=== PATIENT | female | born 1975 | race Caucasian/White ===

== ENCOUNTER 2018-03-04 07:42 | Emergency (ER) | payer SELFPAY ==
[2018-03-04 07:47] VITALS: RESP 18
[2018-03-04] MEDS ORDERED: KETOROLAC 60 MG/2 ML VIAL IM STA (08:40)
--- NOTE | 2018-03-04 08:51 | ED ---
General Adult HPI - General Chief complaint: Extremity Injury, Lower Stated complaint: Foot Numbness Time Seen by Provider: 03/04/18 08:30 Source: patient, RN notes reviewed, old records reviewed Mode of arrival: wheelchair Limitations: no limitations - History of Present Illness Initial comments: 42-year-old female presented to the emergency room today with a chief complaint of sciatic pain going down left leg. She doesn't that she's had this for several months. Was seen in the emergency room recently given a Toradol shot which she states to give her some relief. She was using ibuprofen along with Flexeril at home with some relief the symptoms. She states she is out of his medications. Patient states she currently does not have a family physician has not followed up. Patient states pain is the same pain is radiating down the left leg. She admits to a numbness to groin sensation. She states goes all the way down to the toes. Denies any bowel or bladder incontinence or retention. Denies any saddle anesthesia. Patient denies any new injury or trauma to the area. Patient denies any recent fever, chills, shortness of breath , chest pain, abdominal pain, nausea or vomiting, headaches or visual changes, or any other complaints. - Related Data Previous Rx's Medication Instructions Recorded Cyclobenzaprine [Flexeril] 10 mg PO TID PRN #12 tablet 03/02/18 Ibuprofen [Motrin] 600 mg PO Q6HR PRN #20 tab 03/02/18 Cyclobenzaprine [Flexeril] 10 mg PO TID #20 tab 03/04/18 Dexamethasone 0.75 mg PO DIRECTED #12 tablet 03/04/18 Ibuprofen [Motrin] 800 mg PO Q6HR #30 tab 03/04/18 Allergies Allergy/AdvReac Type Severity Reaction Status Date / Time No Known Allergies Allergy Verified 03/04/18 07:57 Review of Systems ROS Statement: Those systems with pertinent positive or pertinent negative responses have been documented in the HPI. ROS Other: All systems not noted in ROS Statement are negative. Past Medical History Past Medical History: Asthma, Fibromyalgia Additional Past Medical History / Comment(s): Iron deficiency anemia, R side of face sinus cavity crushed. History of Any Multi-Drug Resistant Organisms: None Reported Past Surgical History: Tubal Ligation Past Anesthesia/Blood Transfusion Reactions: No Reported Reaction Past Psychological History: Anxiety Smoking Status: Never smoker Past Alcohol Use History: None Reported Past Drug Use History: Marijuana - Past Family History Father Additional Family Medical History / Comment(s): Father had iron deficiency anemia. He is . Pt does not know what cause of was. Mother Family Medical History: Fibromyalgia, Respiratory Disorder Additional Family Medical History / Comment(s): Mother has small lungs and is O2 dependent. General Exam - General Exam Comments Initial Comments: General: The patient is awake and alert, in no distress, and does not appear acutely ill. Eye: Pupils are equal, round and reactive to light, extra-ocular movements are intact. No nystagmus. There is normal conjunctiva bilaterally. Ears, nose, mouth and throat: There are moist mucous membranes and no oral lesions. Neck: The neck is supple, there is no tenderness or JVD. Cardiovascular: There is a regular rate and rhythm. No murmur, rub or gallop is appreciated. Respiratory: Lungs are clear to auscultation, respirations are non-labored, breath sounds are equal. No wheezes, stridor, rales, or rhonchi. Musculoskeletal: Normal ROM. Strength 5/5. Sensation intact. Pulses equal bilaterally 2+ pedal pulse. Patient has no tenderness or step-offs to the thoracic or lumbar spine. She is tender over the SI joint on the left. Neurological: A&O x 3. CN II-XII intact, There are no obvious motor or sensory deficits. Coordination appears grossly intact. Speech is normal. Skin: Skin is warm and dry and no rashes or lesions are noted. Psychiatric: Cooperative, appropriate mood & affect, normal judgment. Limitations: no limitations Course Vital Signs 03/04/18 07:44 Temperature 96.9 F L Pulse Rate 101 H Respiratory 18 Rate Blood Pressure 143/76 O2 Sat by Pulse 96 Oximetry Medical Decision Making - Medical Decision Making 42-year-old female presenting for chronic left lumbar radiculopathy. Does admit to a numbness to sensation down to the toes. Denies any saddle anesthesia , bowel or bladder incontinence retention. Patient admits that these are the same symptoms that she's had in the past is no new injury or trauma. No new symptoms today. Patient does admit that she is out of the ibuprofen and Flexeril that was prescribed initially. She states she's not followed up with the family physician. Patient will be referred to family physician also given information for orthopedics to follow up with. Advised to discuss further evaluation with possible MRI. Patient will be given IV Profen and Flexeril to go home with along with a steroid Dosepak. Disposition Clinical Impression: Lumbar radiculopathy Disposition: HOME SELF-CARE Condition: Good Instructions: Lumbar Radiculopathy (ED) Additional Instructions: Please follow-up the family doctor or orthopedics over the next 2 days. Please use medications as prescribed. Please return to emergency room symptoms increase worsen or for any other concerns. Prescriptions: Cyclobenzaprine [Flexeril] 10 mg PO TID #20 tab Dexamethasone 0.75 mg PO DIRECTED #12 tablet Ibuprofen [Motrin] 800 mg PO Q6HR #30 tab Is patient prescribed a controlled substance at d/c from ED?: No Referrals: None,Stated [Primary Care Provider] - 1-2 days Onel Nichols MD [STAFF PHYSICIAN] - 1-2 days Phillip Cleary MD [STAFF PHYSICIAN] - 1-2 days Time of Disposition: 08:50
[2018-03-04 08:59] VITALS: BP 138/76; PULSE 72; TEMP 97
== END 2018-03-04 08:57 | disposition home or self-care (01) ==
LOC: EC 07:42
DX: M54.16 Radiculopathy, lumbar region (principal)
CPT/HCPCS: 99283; J1885

== ENCOUNTER 2019-01-02 07:59 | Emergency (ER) | payer OTHER ==
[2019-01-02 08:04] VITALS: RESP 18; TEMP 97.8
[2019-01-02] MEDS ORDERED: diphenhydrAMINE 50 MG/ML 1 ML VIAL IVP STA (08:31)
[2019-01-02] MEDS ORDERED: PROMETHAZINE INJ 25 MG in SODIUM CHLORIDE 0.9% 50 ML IVPB STA (08:31)
[2019-01-02] MEDS ORDERED: SODIUM CHLORIDE 0.9% 500 ML 500 ML IV ONE (08:31)
--- NOTE | 2019-01-02 08:38 | ED ---
General Adult HPI - General Chief complaint: Neuro Symptoms/Deficit Stated complaint: head & face pressure Time Seen by Provider: 01/02/19 08:00 Source: patient, RN notes reviewed Mode of arrival: ambulatory Limitations: no limitations - History of Present Illness Initial comments: This a 43-year-old female who presents emergency Department with a history of a headache for 3 weeks. Patient states she doesn't have any numbness or weakness. Patient denies visual disturbance. Patient denies any speech disturbance. Patient states she is a little sensitive to light and she has a copper taste in her mouth. Patient states she has had a copper tasting in her mouth and she has had in the past. Patient denies any chest pain difficulty breathing or shortness of breath. Patient denies any abdominal pain patient patient states she is mildly nauseated but has not vomited. Patient denies any recent fever chills or cough. Patient denies any recent trauma. - Related Data Previous Rx's Medication Instructions Recorded Ibuprofen [Motrin] 800 mg PO Q6HR #30 tab 03/04/18 Allergies Allergy/AdvReac Type Severity Reaction Status Date / Time No Known Allergies Allergy Verified 01/02/19 09:21 Review of Systems ROS Statement: Those systems with pertinent positive or pertinent negative responses have been documented in the HPI. ROS Other: All systems not noted in ROS Statement are negative. Past Medical History Past Medical History: Asthma, Fibromyalgia Additional Past Medical History / Comment(s): Iron deficiency anemia, R side of face sinus cavity crushed. History of Any Multi-Drug Resistant Organisms: None Reported Past Surgical History: Tubal Ligation Past Anesthesia/Blood Transfusion Reactions: No Reported Reaction Past Psychological History: Anxiety Smoking Status: Never smoker Past Alcohol Use History: None Reported Past Drug Use History: Marijuana - Past Family History Father Additional Family Medical History / Comment(s): Father had iron deficiency anemia. He is . Pt does not know what cause of was. Mother Family Medical History: Fibromyalgia, Respiratory Disorder Additional Family Medical History / Comment(s): Mother has small lungs and is O2 dependent. General Exam - General Exam Comments Initial Comments: GENERAL: Patient is well-developed and well-nourished. Patient is nontoxic and well- hydrated and is in no acute distress. ENT: Neck is soft and supple. No significant lymphadenopathy is noted. Oropharynx is clear. Moist mucous membranes. Neck has full range of motion without eliciting any pain. EYES: The sclera were anicteric and conjunctiva were pink and moist. Extraocular movements were intact and pupils were equal round and reactive to light. Eyelids were unremarkable. When I shined the ophthalmoscope in the patient's eye she was not photophobic PULMONARY: Unlabored respirations. Good breath sounds bilaterally. No audible rales rhonchi or wheezing was noted. CARDIOVASCULAR: There is a regular rate and rhythm without any murmurs gallops or rubs. ABDOMEN: Soft and nontender with normal bowel sounds. No palpable organomegaly was noted. There is no palpable pulsatile mass. SKIN: Skin is clear with no lesions or rashes and otherwise unremarkable. NEUROLOGIC: Patient is alert and oriented x3. Cranial nerves II through XII are grossly intact. Motor and sensory are also intact. Normal speech, volume and content. Symmetrical smile. MUSCULOSKELETAL: Normal extremities with adequate strength and full range of motion. No lower extremity swelling or edema. No calf tenderness. LYMPHATICS: No significant lymphadenopathy is noted PSYCHIATRIC: Normal psychiatric evaluation. Limitations: no limitations Course Vital Signs 01/02/19 08:01 Temperature 97.8 F Pulse Rate 78 Respiratory 18 Rate Blood Pressure 114/71 O2 Sat by Pulse 97 Oximetry Medical Decision Making - Medical Decision Making Patient's CT of the brain shows no acute normalities. Patient received Benadryl Phenergan and Toradol emergency department and I walked into the room after she was given this she was sleeping when she awoke she stated she is feeling much better. - Lab Data Result diagrams: 01/02/19 08:37 01/02/19 08:37 Lab Results 01/02/19 01/02/19 Range/Units 08:37 08:37 WBC 5.5 (3.8-10.6) k/uL RBC 5.16 (3.80-5.40) m/uL Hgb 15.1 (11.4-16.0) gm/dL Hct 45.6 (34.0-46.0) % MCV 88.4 (80.0-100.0) fL MCH 29.3 (25.0-35.0) pg MCHC 33.1 (31.0-37.0) g/dL RDW 13.6 (11.5-15.5) % Plt Count 202 (150-450) k/uL Neutrophils % 64 % Lymphocytes % 28 % Monocytes % 3 % Eosinophils % 3 % Basophils % 0 % Neutrophils # 3.5 (1.3-7.7) k/uL Lymphocytes # 1.5 (1.0-4.8) k/uL Monocytes # 0.2 (0-1.0) k/uL Eosinophils # 0.2 (0-0.7) k/uL Basophils # 0.0 (0-0.2) k/uL Sodium 142 (137-145) mmol/L Potassium 4.3 (3.5-5.1) mmol/L Chloride 110 H (98-107) mmol/L Carbon Dioxide 26 (22-30) mmol/L Anion Gap 6 mmol/L BUN 16 (7-17) mg/dL Creatinine 0.67 (0.52-1.04) mg/dL Est GFR (CKD-EPI)AfAm >90 (>60 ml/min/1.73 sqM) Est GFR (CKD-EPI)NonAf >90 (>60 ml/min/1.73 sqM) Glucose 113 H (74-99) mg/dL Calcium 9.4 (8.4-10.2) mg/dL Total Bilirubin 0.8 (0.2-1.3) mg/dL AST 22 (14-36) U/L ALT 36 (9-52) U/L Alkaline Phosphatase 48 (38-126) U/L Total Protein 7.0 (6.3-8.2) g/dL Albumin 4.1 (3.5-5.0) g/dL Disposition Clinical Impression: Headache Disposition: HOME SELF-CARE Condition: Good Instructions (If sedation given, give patient instructions): General Headache ( ED) Is patient prescribed a controlled substance at d/c from ED?: No Referrals: Niharika Watts DO [Primary Care Provider] - 1-2 days Time of Disposition: 11:14
[2019-01-02 09:00] LABS: Basophils % (A) 0 %; Eosinophils # (A) 0.2 k/uL (0-0.7); Eosinophils % (A) 3 %; HCT 45.6 % (34.0-46.0); HGB 15.1 gm/dL (11.4-16.0); Lymphocytes # (A) 1.5 k/uL (1.0-4.8); Lymphocytes % (A) 28 %; MCH 29.3 pg (25.0-35.0); MCHC 33.1 g/dL (31.0-37.0); MCV 88.4 fL (80.0-100.0); Mean Platelet Volume 7.8; Monocytes # (A) 0.2 k/uL (0-1.0); Monocytes % (A) 3 %; Neutrophils # (A) 3.5 k/uL (1.3-7.7); Neutrophils % (A) 64 %; Platelet Count 202 k/uL (150-450); RBC 5.16 m/uL (3.80-5.40); RDW 13.6 % (11.5-15.5); WBC 5.5 k/uL (3.8-10.6)
[2019-01-02 09:07] LABS: ALT 36 U/L (9-52); AST 22 U/L (14-36); Albumin 4.1 g/dL (3.5-5.0); Alkaline Phosphatase 48 U/L (38-126); Anion Gap 6 mmol/L; Blood Urea Nitrogen 16 mg/dL (7-17); Calcium 9.4 mg/dL (8.4-10.2); Carbon Dioxide 26 mmol/L (22-30); Chloride 110 mmol/L (98-107); Glucose 113 mg/dL (74-99); Potassium 4.3 mmol/L (3.5-5.1); Sodium 142 mmol/L (137-145); Total Bilirubin 0.8 mg/dL (0.2-1.3)
--- NOTE | 2019-01-02 09:27 | CT ---
EXAMINATION TYPE: CT brain wo con DATE OF EXAM: 01/02/2019 COMPARISON: 05/14/2014 HISTORY: Headache for 3 weeks with right sided facial numbness CT DLP: 1064.[address] of the brain was performed. The ventricles, basal cisterns and sulci overlying the cerebral convexities demonstrate a normal appe arance. There is no evidence for intracranial hemorrhage or sulcal effacement. No mass effects are seen. Osseous calvarium is intact. If symptoms persist consider MRI as clinically warranted. IMPRESSION: 1. No acute intracranial process is seen at this time.
[2019-01-02] MEDS ORDERED: KETOROLAC 60 MG/2 ML VIAL IVP STA (10:12)
[2019-01-02 12:09] VITALS: BP 111/75; PULSE 70
== END 2019-01-02 12:05 | disposition home or self-care (01) ==
LOC: EC 07:59
DX: R51 Headache (principal); R11.0 Nausea; Z98.51 Tubal ligation status
CPT/HCPCS: 36415; 80053; 85025; 70450; 99284; 96365; 96375 ×2; 96361 ×3; J1200; J2550; J1885

== ENCOUNTER 2021-09-23 23:54 | Observation (INO) | payer OTHER ==
[2021-09-24] MEDS ORDERED: SODIUM CHLORIDE 0.9% 1,000 ML IV STA (01:08)
[2021-09-24] MEDS ORDERED: ONDANSETRON 4 MG/2 ML VIAL IVP STA (01:09)
--- NOTE | 2021-09-24 01:15 | ED ---
Weakness HPI - General Chief complaint: Abdominal Pain Stated complaint: Dizziness, high heart rate Time Seen by Provider: 09/24/21 01:08 Source: patient, RN notes reviewed, old records reviewed Mode of arrival: wheelchair Limitations: no limitations - History of Present Illness Initial comments: This is a 45-year-old female to the emergency department for evaluation patient presents today for evaluation regards to multiple complaints nausea chest pain palpitations and weakness. History of syncopal events in the past history of severe cardiac disease. Patient very concerned for her currently. Has no family doctor children's attendant an outpatient basis. Patient presents to ER with continued palpitations and chest pain but no significant current shortness of breath. MD Complaint: generalized weakness, focal weakness (Review of) -: days(s) Location: generalized Severity: moderate Severity scale (1-10): 4 Quality: numbness Consistency: constant Improves with: none Worsens with: none Context: recent illness, history of similar Associated Symptoms: chest pain, nausea/vomiting - Related Data Previous Rx's Medication Instructions Recorded Ibuprofen [Motrin] 800 mg PO Q6HR #30 tab 03/04/18 Allergies Allergy/AdvReac Type Severity Reaction Status Date / Time No Known Allergies Allergy Verified 09/24/21 00:03 Review of Systems ROS Statement: Those systems with pertinent positive or pertinent negative responses have been documented in the HPI. ROS Other: All systems not noted in ROS Statement are negative. Past Medical History Past Medical History: Asthma, Fibromyalgia Additional Past Medical History / Comment(s): Iron deficiency anemia, R side of face sinus cavity crushed. History of Any Multi-Drug Resistant Organisms: None Reported Past Surgical History: Tubal Ligation Past Anesthesia/Blood Transfusion Reactions: No Reported Reaction Past Psychological History: Anxiety Smoking Status: Former smoker Past Alcohol Use History: None Reported Past Drug Use History: Marijuana - Past Family History Father Additional Family Medical History / Comment(s): Father had iron deficiency anemia. He is . Pt does not know what cause of was. Mother Family Medical History: Fibromyalgia, Respiratory Disorder Additional Family Medical History / Comment(s): Mother has small lungs and is O2 dependent. General Exam Limitations: no limitations General appearance: alert, in no apparent distress Head exam: Present: atraumatic, normocephalic, normal inspection Eye exam: Present: normal appearance, PERRL, EOMI. Absent: scleral icterus, con junctival injection, periorbital swelling ENT exam: Present: normal exam, mucous membranes moist Neck exam: Present: normal inspection. Absent: tenderness, meningismus, lymphadenopathy Respiratory exam: Present: normal lung sounds bilaterally. Absent: respiratory distress, wheezes, rales, rhonchi, stridor Cardiovascular Exam: Present: regular rate, normal rhythm, normal heart sounds. Absent: systolic murmur, diastolic murmur, rubs, gallop, clicks GI/Abdominal exam: Present: soft, normal bowel sounds. Absent: distended, tenderness, guarding, rebound, rigid Extremities exam: Present: normal inspection, full ROM, normal capillary refill. Absent: tenderness, pedal edema, joint swelling, calf tenderness Back exam: Present: normal inspection Neurological exam: Present: alert, oriented X3, CN II-XII intact Psychiatric exam: Present: normal affect, normal mood Skin exam: Present: warm, dry, intact, normal color. Absent: rash Course Vital Signs 09/23/21 09/24/21 09/24/21 23:58 01:03 03:24 Temperature 97.0 F L Pulse Rate 86 73 89 Respiratory 18 18 18 Rate Blood Pressure 130/75 138/89 137/78 O2 Sat by Pulse 97 97 98 Oximetry 09/24/21 05:07 Temperature Pulse Rate 74 Respiratory 18 Rate Blood Pressure 101/63 O2 Sat by Pulse 97 Oximetry - Reevaluation(s) Reevaluation #1: 09/24/21 06:31 Medical record is reviewed Reevaluation #2: 09/24/21 06:31 History of chest pain palpitations here in the ER hemoglobin is low that shortness of breath does not fill comfortable with discharge Reevaluation #3: 09/24/21 06:31 Spoke with patient regarding results and questions are answered - Consultations Consultation #1: Spoke with e[facility] will be admitted Medical Decision Making - Medical Decision Making 45 female to be admitted for chest pain observation secondary chest pain persistent palpitations with history of heart disease - Lab Data Result diagrams: 09/24/21 02:05 09/24/21 02:05 Lab Results 09/24/21 09/24/21 09/24/21 Range/Units 02:05 02:05 02:05 WBC 7.4 (3.8-10.6) k/uL RBC 4.76 (3.80-5.40) m/uL Hgb 14.2 (11.4-16.0) gm/dL Hct 42.8 (34.0-46.0) % MCV 89.8 (80.0-100.0) fL MCH 29.9 (25.0-35.0) pg MCHC 33.3 (31.0-37.0) g/dL RDW 12.9 (11.5-15.5) % Plt Count 170 (150-450) k/uL MPV 9.2 Neutrophils % 75 % Lymphocytes % 19 % Monocytes % 3 % Eosinophils % 2 % Basophils % 1 % Neutrophils # 5.5 (1.3-7.7) k/uL Lymphocytes # 1.4 (1.0-4.8) k/uL Monocytes # 0.2 (0-1.0) k/uL Eosinophils # 0.1 (0-0.7) k/uL Basophils # 0.0 (0-0.2) k/uL Sodium 139 (137-145) mmol/L Potassium 3.8 (3.5-5.1) mmol/L Chloride 108 H (98-107) mmol/L Carbon Dioxide 23 (22-30) mmol/L Anion Gap 8 mmol/L BUN 17 (7-17) mg/dL Creatinine 0.83 (0.52-1.04) mg/dL Est GFR (CKD-EPI)AfAm >90 (>60 ml/min/1.73 sqM) Est GFR (CKD-EPI)NonAf 85 (>60 ml/min/1.73 sqM) Glucose 103 H (74-99) mg/dL Calcium 9.4 (8.4-10.2) mg/dL Total Bilirubin 0.4 (0.2-1.3) mg/dL AST 28 (14-36) U/L ALT 26 (4-34) U/L Alkaline Phosphatase 56 (38-126) U/L Troponin I <0.012 (0.000-0.034) ng/mL Total Protein 6.6 (6.3-8.2) g/dL Albumin 3.8 (3.5-5.0) g/dL Amylase 76 (30-110) U/L Lipase 146 (23-300) U/L TSH 4.240 (0.465-4.680) mIU/L - Radiology Data Radiology results: report reviewed (Chest x-ray x-ray KUB negative for acute disease), image reviewed Disposition Clinical Impression: Unstable angina pectoris, Chest pain, Palpitations Disposition: ADMITTED IP TO THIS HOSP Condition: Fair Is patient prescribed a controlled substance at d/c from ED?: No
--- NOTE | 2021-09-24 02:22 | XR ---
EXAMINATION TYPE: XR KUB DATE OF EXAM: 09/24/2021 COMPARISON: NONE HISTORY: Tachycardia TECHNIQUE: 2 views FINDINGS: Bowel gas pattern is normal. There is no sign of intestinal obstruction or pneumoperitoneum . Pattern is normal. There is no evidence of a mass. IMPRESSION: Nonacute abdomen.
--- NOTE | 2021-09-24 02:23 | XR ---
EXAMINATION TYPE: XR chest 1V portable DATE OF EXAM: 09/24/2021 COMPARISON: 09/19/2016 HISTORY: Abdominal pain TECHNIQUE: Single view FINDINGS: Heart and mediastinum are normal. Lungs are clear. Diaphragm is normal. Bony thorax is inta ct. IMPRESSION: Normal chest. No change.
[2021-09-24 02:58] LABS: Basophils % (A) 1 %; Eosinophils # (A) 0.1 k/uL (0-0.7); Eosinophils % (A) 2 %; HCT 42.8 % (34.0-46.0); HGB 14.2 gm/dL (11.4-16.0); Lymphocytes # (A) 1.4 k/uL (1.0-4.8); Lymphocytes % (A) 19 %; MCH 29.9 pg (25.0-35.0); MCHC 33.3 g/dL (31.0-37.0); MCV 89.8 fL (80.0-100.0); Mean Platelet Volume 9.2; Monocytes # (A) 0.2 k/uL (0-1.0); Monocytes % (A) 3 %; Neutrophils # (A) 5.5 k/uL (1.3-7.7); Neutrophils % (A) 75 %; Platelet Count 170 k/uL (150-450); RBC 4.76 m/uL (3.80-5.40); RDW 12.9 % (11.5-15.5); WBC 7.4 k/uL (3.8-10.6)
[2021-09-24 03:06] LABS: ALT 26 U/L (4-34); AST 28 U/L (14-36); African American GFR (CKD) >90 (>60 ml/min/1.73 sqM); Albumin 3.8 g/dL (3.5-5.0); Alkaline Phosphatase 56 U/L (38-126); Amylase 76 U/L (30-110); Anion Gap 8 mmol/L; Blood Urea Nitrogen 17 mg/dL (7-17); Calcium 9.4 mg/dL (8.4-10.2); Carbon Dioxide 23 mmol/L (22-30); Chloride 108 mmol/L (98-107); Glucose 103 mg/dL (74-99); Lipase 146 U/L (23-300); Non-African American GFR(CKD) 85 (>60 ml/min/1.73 sqM); Potassium 3.8 mmol/L (3.5-5.1); Sodium 139 mmol/L (137-145); Total Bilirubin 0.4 mg/dL (0.2-1.3); Total Protein 6.6 g/dL (6.3-8.2)
[2021-09-24] MEDS ORDERED: ASPIRIN 81 MG PO STA (03:59)
[2021-09-24] MEDS ORDERED: NITROGLYCERIN SL TABS 0.4 MG TAB SUBLINGUAL PRN (03:59)
[2021-09-24] MEDS ORDERED: MORPHINE SULFATE 4 MG/ML SYRINGE IV PRN (03:59)
[2021-09-24] MEDS ORDERED: SODIUM CHLORIDE 0.9% 1,000 ML IV SCH (04:00)
[2021-09-24] MEDS: IBUPROFEN 400 MG TAB PO SCH ×2 (06:01→12:36)
[2021-09-24 14:03] VITALS: BP 117/80; PULSE 76; RESP 20; TEMP 97.9
--- NOTE | 2021-09-24 17:33 | HP ---
HISTORY AND PHYSICAL Ms. Bernal is a 45-year-old female with no significant past medical history who is admitted to the hospital with various symptoms of chest pain, soreness, palpitations and not feeling well and weak. The patient has been having these symptoms for 4 weeks. The patient was evaluated for chest pain in 2016 where she had a stress test and an echocardiogram. A stress test at that time was negative for ischemia. This was a stress echocardiogram. Echocardiograms at that time showed normal LV function. Since then, patient has not had any followup. She is not a smoker. No history of hypertension or diabetes. Chest x-ray did not reveal any acute changes. I did not see any EKG available at this time. At the time of examination, patient is fairly comfortable. PAST MEDICAL HISTORY: Negative for hypertension, diabetes, hypercholesterolemia, previous OK, strokes. MEDICATIONS: None. ALLERGIES: None. PHYSICAL EXAMINATION: Reveals a 45-year-old female who is well built, does not appear to be in acute distress. LUNGS: Clear. Heart is regular. No JVD. No peripheral edema. ABDOMEN: Soft. EXTREMITIES: No cyanosis, clubbing, or edema. FINAL IMPRESSION: 1. Chest pain and palpitations appear to be atypical. So far, no arrhythmias documented. PLAN: We will continue to monitor for any arrhythmias. We will follow cardiac enzymes. If they are negative, the patient could be considered for a stress test and echocardiogram. Further recommendations depend upon the clinical course. ANDREA / OBINNA: [id number] /
[2021-09-25] MEDS ORDERED: ASPIRIN 325 MG TAB PO SCH (09:00)
--- NOTE | 2021-09-25 18:09 | P.HPIM ---
History of Present Illness H&P Date: 09/24/21 Chief Complaint: Chest pain/palpitations/dizziness 45-year-old female to the emergency department for evaluation patient presents today for evaluation regards to multiple complaints nausea chest pain palpitations and weakness. History of syncopal events in the past history of severe cardiac disease. Patient very concerned for her currently. Has no family doctor recreational therapist an outpatient basis. Patient presents to ER with continued palpitations and chest pain but no significant current shortness of breath. Workup in ED including blood work, WBC 7.4, hemoglobin 14.2, hematocrit 42.8 and platelet count of 170, sodium 139, potassium 3.8, BUN/creatinine of 17/0.83, g lucose 103, troponin less than 0.012 Chest x-ray and KUB negative for acute disease EKG is unremarkable Review of Systems REVIEW OF SYSTEMS: CONSTITUTIONAL: No fever, no malaise, no fatigue. HEENT: No recent visual problems or hearing problems. Denied any sore throat. CARDIOVASCULAR: Reports chest pain, orthopnea, PND, no palpitations, no syncope. PULMONARY: No shortness of breath, no cough, no hemoptysis. GASTROINTESTINAL: No diarrhea, no nausea, no vomiting, no abdominal pain. NEUROLOGICAL: No headaches, no weakness, no numbness. HEMATOLOGICAL: Denies any bleeding or petechiae. GENITOURINARY: Denies any burning micturition, frequency, or urgency. MUSCULOSKELETAL/RHEUMATOLOGICAL: Denies any joint pain, swelling, or any muscle pain. ENDOCRINE: Denies any polyuria or polydipsia. The rest of the 14-point review of systems is negative. Past Medical History Past Medical History: Asthma, Fibromyalgia Additional Past Medical History / Comment(s): Iron deficiency anemia, R side of face sinus cavity crushed. History of Any Multi-Drug Resistant Organisms: None Reported Past Surgical History: Tubal Ligation Past Anesthesia/Blood Transfusion Reactions: No Reported Reaction Past Psychological History: Anxiety Smoking Status: Former smoker Past Alcohol Use History: None Reported Past Drug Use History: Marijuana - Past Family History Father Additional Family Medical History / Comment(s): Father had iron deficiency anemia. He is . Pt does not know what cause of was. Mother Family Medical History: Fibromyalgia, Respiratory Disorder Additional Family Medical History / Comment(s): Mother has small lungs and is O2 dependent. Medications and Allergies Home Medications Medication Instructions Recorded Confirmed Type No Known Home Medications 09/24/21 09/24/21 History Allergies Allergy/AdvReac Type Severity Reaction Status Date / Time No Known Allergies Allergy Verified 09/24/21 08:16 Physical Exam Vitals: Vital Signs Temp Pulse Resp BP Pulse Ox 09/24/21 05:07 74 18 101/63 97 09/24/21 03:24 89 18 137/78 98 09/24/21 01:03 73 18 138/89 97 09/23/21 23:58 97.0 F L 86 18 130/75 97 Intake and Output 09/23/21 09/24/21 09/24/21 22:59 06:59 14:59 Other: # Voids 1 Weight 95.254 kg - Constitutional General appearance: Present: average body habitus, cooperative, no acute distress - EENT Eyes: Present: anicteric sclerae, EOMI, PERRLA, normal appearance ENT: Present: hearing grossly normal, normal oropharynx Ears: bilateral: normal - Neck Neck: Present: normal ROM. Absent: lymphadenopathy, rigidity, thyromegaly Carotids: negative: bruit present Thyroid: bilateral: normal size, negative: enlarged, nodule - Respiratory Respiratory: bilateral: CTA, negative: rales, rhonchi, wheezing - Cardiovascular Rhythm: regular Heart sounds: normal: S1, S2 Abnormal Heart Sounds: Absent: systolic murmur, diastolic murmur - Gastrointestinal General gastrointestinal: Present: normal bowel sounds, soft. Absent: distended, organomegaly, tenderness - Genitourinary Genitourinary Comment(s): deferred - Integumentary Integumentary: Present: normal turgor. Absent: jaundiced, rash, ulcer - Neurologic Neurologic: Present: CNII-XII intact. Absent: focal deficits - Musculoskeletal Musculoskeletal: Present: gait normal, strength equal bilaterally - Psychiatric Psychiatric: Present: A&O x's 3, appropriate affect, intact judgment & insight Results CBC & Chem 7: 09/24/21 02:05 09/24/21 02:05 Labs: Abnormal Lab Results - Last 24 Hours (Table) 09/24/21 Range/Units 02:05 Chloride 108 H (98-107) mmol/L Glucose 103 H (74-99) mg/dL Thrombosis Risk Factor Assmnt - Choose All That Apply Any of the Below Risk Factors Present?: Yes Each Factor Represents 1 point: Age 41-60 years, Obesity (BMI >25) Other Risk Factors: No Other congenital or acquired thrombophilia - If yes, enter type in comment: No Thrombosis Risk Factor Assessment Total Risk Factor Score: 2 Thrombosis Risk Factor Assessment Level: Low Risk Assessment and Plan Assessment: 1. Chest pain/unstable angina Patient received aspirin and beta blockers in ED; we will admit for telemetry and monitor EKG along with cardiac enzymes; 2-D echo; consult cardiology for further evaluation We will start patient aspirin 325 mg daily; further recommendations once workup is complete 2. Asthma; not in exacerbation; continue with home inhaler therapy 3. Fibromyalgia; continue with symptomatic treatment DVT prophylaxis; SCDs CODE STATUS; full code
== END 2021-09-24 15:00 | disposition home or self-care (01) ==
LOC: EC 23:54 → 6NMEDSUR 09-24 03:59
PROVIDERS: ADMIT Hospitalist; ATTEND Hospitalist
DX: R07.89 Other chest pain (principal); I20.0 Unstable angina; R00.2 Palpitations; R11.2 Nausea with vomiting, unspecified; I51.9 Heart disease, unspecified; R53.1 Weakness; R10.9 Unspecified abdominal pain; R42 Dizziness and giddiness; J45.909 Unspecified asthma, uncomplicated; M79.7 Fibromyalgia; D50.9 Iron deficiency anemia, unspecified; F41.9 Anxiety disorder, unspecified; E66.9 Obesity, unspecified; Z68.34 Body mass index [BMI] 34.0-34.9, adult; Z20.822 Contact with and (suspected) exposure to COVID-19; Z87.891 Personal history of nicotine dependence; Z83.6 Family history of other diseases of the respiratory system; Z83.2 Family history of diseases of the blood and blood-forming organs and certain disorders involving the immune mechanism; Z82.69 Family history of other diseases of the musculoskeletal system and connective tissue
CPT/HCPCS: 96374; 99285; 36415; 80053; 82150; 83690; 84443; 84484; 85025; 87635; 71045; 74018; G0378; J2405

== ENCOUNTER 2022-05-26 05:58 | Emergency (ER) | payer OTHER ==
[2022-05-26 06:06] VITALS: TEMP 98.3
[2022-05-26] MEDS ORDERED: methylPREDNISolone SOD SUCCI 125 MG/2 ML VIAL IM ONE (06:24)
[2022-05-26] MEDS ORDERED: FAMOTIDINE 20 MG TAB PO STA (06:24)
--- NOTE | 2022-05-26 06:39 | ED ---
General Adult HPI - General Chief complaint: Skin/Abscess/Foreign Body Stated complaint: itchy hands, feet, ear Time Seen by Provider: 05/26/22 06:07 Source: patient Mode of arrival: ambulatory Limitations: no limitations - History of Present Illness Initial comments: Patient is a 46-year-old female complaining of skin itching. Patient states that about 2 weeks ago symptoms started with itching of the hands. She states that since then the hand itching has subsided, however now she is experiencing itching of the feet in the ears. Patient states that her granddaughter has had the same symptoms and recently tested positive for strep throat. Patient denies any shortness of breath, wheezing, dysphasia. She denies any sore throat, fever, chills, nausea, vomiting, chest pain. - Related Data Previous Rx's Medication Instructions Recorded Amoxic-Pot Clav 875-125Mg 1 tab PO Q12HR 7 Days #14 tab 05/26/22 [Augmentin 875-125] Allergies Allergy/AdvReac Type Severity Reaction Status Date / Time No Known Allergies Allergy Verified 05/26/22 06:06 Review of Systems ROS Statement: Those systems with pertinent positive or pertinent negative responses have been documented in the HPI. ROS Other: All systems not noted in ROS Statement are negative. Past Medical History Past Medical History: Asthma, Fibromyalgia Additional Past Medical History / Comment(s): Iron deficiency anemia, R side of face sinus cavity crushed. History of Any Multi-Drug Resistant Organisms: None Reported Past Surgical History: Tubal Ligation Past Anesthesia/Blood Transfusion Reactions: No Reported Reaction Past Psychological History: Anxiety Smoking Status: Former smoker Past Alcohol Use History: None Reported Past Drug Use History: Marijuana - Past Family History Father Additional Family Medical History / Comment(s): Father had iron deficiency anemia. He is . Pt does not know what cause of was. Mother Family Medical History: Fibromyalgia, Respiratory Disorder Additional Family Medical History / Comment(s): Mother has small lungs and is O2 dependent. General Exam Limitations: no limitations General appearance: alert, in no apparent distress Head exam: Present: atraumatic, normocephalic, normal inspection Eye exam: Present: normal appearance, PERRL, EOMI. Absent: scleral icterus, periorbital swelling ENT exam: Present: normal oropharynx, mucous membranes moist, TM's normal bilaterally, normal external ear exam Expanded Mouth exam: Present: normal external inspection, tongue normal. Absent: drooling, trismus, muffled voice Teeth exam: Present: dental caries (Gumline tenderness along dental caries on the left upper side ) Throat exam: normal inspection. negative: tonsillar erythema, tonsillomegaly, tonsillar exudate Neck exam: Present: normal inspection. Absent: tenderness Respiratory exam: Present: normal lung sounds bilaterally. Absent: respiratory distress, wheezes, rales, rhonchi, stridor Cardiovascular Exam: Present: regular rate, normal rhythm, normal heart sounds. Absent: systolic murmur, diastolic murmur, rubs, gallop, clicks Neurological exam: Present: alert, oriented X3, CN II-XII intact Psychiatric exam: Present: normal affect, normal mood Skin exam: Present: warm, dry, intact, normal color. Absent: rash Course Vital Signs 05/26/22 05/26/22 06:00 07:51 Temperature 98.3 F Pulse Rate 77 79 Respiratory 22 18 Rate Blood Pressure 133/80 120/98 O2 Sat by Pulse 97 98 Oximetry Medical Decision Making - Medical Decision Making Patient is a 46-year-old female presenting with chief complaint skin itching. Patient states that is it is mainly her feet in the ears that are itching. She is also complaining of some left-sided facial swelling, she is a known cracked tooth and admits to some gum sensitivity. She has been taking hydroxyzine which she complains is too sedating. On examination normal posterior pharynx, some gumline sensitivity on palpation, some sensitivity to facial swelling on palpation. Heart and lungs are clear to auscultation, no wheezing or respiratory distress. There is some erythema around the ears and on the feet. Patient is requesting a strep test, strep test is negative. Patient was given Pepcid and Solu-Medrol, she reports improvement in her symptoms. She appears stable for discharge with outpatient follow-up at this time. Patient is prescribed Augmentin 875 twice a day for 7 days for dental abscess prophylaxis. Take an [id number] antihistamine such as Zyrtec or Kelley as needed, may take Benadryl at night as needed. Report back to ER with any new or worsening symptoms. Follow-up with PCP and dentist in one to 2 days. Discussed return parameters answered all questions. Patient conveyed verbal understanding and agreed to the plan. My attending is Dr. Calloway. - Lab Data Lab Results 05/26/22 Range/Units 06:53 Group A Strep (PCR) NOT DETECTED (Not Detectd) Disposition Clinical Impression: Dermatitis, Dental abscess Disposition: HOME SELF-CARE Condition: Good Instructions (If sedation given, give patient instructions): Dental Abscess (ED), Urticaria (ED) Additional Instructions: Follow-up with PCP on Sunday. Report back to ER with any new or worsening symptoms. Take medication as prescribed. Prescriptions: Amoxic-Pot Clav 875-125Mg [Augmentin 875-125] 1 tab PO Q12HR 7 Days #14 tab Is patient prescribed a controlled substance at d/c from ED?: No Referrals: None,Stated [REFERRING] - 1-2 days Time of Disposition: 07:44
[2022-05-26 07:52] VITALS: BP 120/98; PULSE 79; RESP 18
== END 2022-05-26 07:53 | disposition home or self-care (01) ==
LOC: EC 05:58
DX: L30.9 Dermatitis, unspecified (principal); K04.7 Periapical abscess without sinus; J45.909 Unspecified asthma, uncomplicated; Z87.891 Personal history of nicotine dependence
CPT/HCPCS: 87651; 99283; 96372; J2930

== ENCOUNTER 2022-07-15 19:27 | Emergency (ER) | payer OTHER ==
[2022-07-15 20:45] VITALS: BP 122/67; PULSE 87; RESP 18; TEMP 97.6
[2022-07-15] MEDS ORDERED: predniSONE 20 MG TAB PO STA (22:04)
--- NOTE | 2022-07-15 22:07 | ED ---
General Adult HPI - General Chief complaint: Skin/Abscess/Foreign Body Stated complaint: Rash Time Seen by Provider: 07/15/22 21:50 Source: patient Limitations: no limitations - History of Present Illness Initial comments: This 46-year-old female presents with a complaint of a rash and pruritus present to her bilateral feet and bilateral hands. This is primarily on the soles of the feet and the palms of the hand. This has been present for approximately one week. She has had a previously as well. She states that it occurs when she wears plastic sandals like crocs. She has tried some Benadryl without relief. She states that she cannot take Atarax causes drowsiness. She has been seen for this previously and received steroids via a shot and also some steroid cream wh ich seemed to help significantly. She denies any fevers or chills. She has some mild swelling to her left ring finger distal to her ring. She denies any significant pain to this area. No other complaints or modifying factors. - Related Data Previous Rx's Medication Instructions Recorded Amoxic-Pot Clav 875-125Mg 1 tab PO Q12HR 7 Days #14 tab 05/26/22 [Augmentin 875-125] Triamcinolone 0.1% Cream [Kenalog 1 applic TOPICAL TID #30 gm 07/15/22 0.1% Cream] predniSONE [Deltasone] 20 mg PO BID #6 tab 07/15/22 Allergies Allergy/AdvReac Type Severity Reaction Status Date / Time No Known Allergies Allergy Verified 07/15/22 20:45 Review of Systems ROS Statement: Those systems with pertinent positive or pertinent negative responses have been documented in the HPI. ROS Other: All systems not noted in ROS Statement are negative. Past Medical History Past Medical History: Asthma, Fibromyalgia Additional Past Medical History / Comment(s): Iron deficiency anemia, R side of face sinus cavity crushed. History of Any Multi-Drug Resistant Organisms: None Reported Past Surgical History: Tubal Ligation Past Anesthesia/Blood Transfusion Reactions: No Reported Reaction Past Psychological History: Anxiety Smoking Status: Former smoker Past Alcohol Use History: None Reported Past Drug Use History: Marijuana - Past Family History Father Additional Family Medical History / Comment(s): Father had iron deficiency anemia. He is . Pt does not know what cause of was. Mother Family Medical History: Fibromyalgia, Respiratory Disorder Additional Family Medical History / Comment(s): Mother has small lungs and is O2 dependent. General Exam Limitations: no limitations General appearance: alert, in no apparent distress Head exam: Present: atraumatic, normocephalic Extremities exam: Present: normal inspection, full ROM. Absent: tenderness Neurological exam: Present: alert, oriented X3. Absent: motor sensory deficit Psychiatric exam: Present: normal affect, normal mood Skin exam: Present: intact, other (There is occasional areas of slight erythema noted to the soles of the feet and to the hands. There is minimal swelling noted to the left ring finger distal to her ring. There is no signs of cellulitis.) Course Vital Signs 07/15/22 20:40 Temperature 97.6 F Pulse Rate 87 Respiratory 18 Rate Blood Pressure 122/67 O2 Sat by Pulse 98 Oximetry Medical Decision Making - Medical Decision Making The patient was seen and examined. The exact cause of her skin inflammation is not definitively determined. She may have a degree of a contact dermatitis. She is given prednisone 60 mg orally and put on prednisone for 3 days. She also is prescribed triamcinolone cream and instructed to only lasts for one week. She has some swelling to her finger distal to her ring and she is offered to have her ring cut off but refuses. She is instructed to return in the next 1-2 days if this swelling gets worse or if she starts having pain or discoloration to her finger. She is agreeable and leaves in no distress. Disposition Clinical Impression: Rash, Dermatitis, Finger swelling Disposition: HOME SELF-CARE Condition: Good Instructions (If sedation given, give patient instructions): Dermatitis (ED) Prescriptions: predniSONE [Deltasone] 20 mg PO BID #6 tab Triamcinolone 0.1% Cream [Kenalog 0.1% Cream] 1 applic TOPICAL TID #30 gm Is patient prescribed a controlled substance at d/c from ED?: No Referrals: None,Stated [Primary Care Provider] - 1-2 days Time of Disposition: 22:13
== END 2022-07-15 22:45 | disposition home or self-care (01) ==
LOC: EC 19:27
DX: R21 Rash and other nonspecific skin eruption (principal); L30.9 Dermatitis, unspecified; M79.89 Other specified soft tissue disorders; J45.909 Unspecified asthma, uncomplicated; M79.7 Fibromyalgia; Z87.891 Personal history of nicotine dependence
CPT/HCPCS: 99283; 99284